=== PATIENT | female | born 1990 | race Caucasian/White ===

== ENCOUNTER 2018-06-24 23:23 | Emergency (ER) | payer BC, OTHER ==
[~2018-06-24] VITALS: Ht 165.1 cm; Wt 70.5 kg
[2018-06-24] MEDS ORDERED: VENL-68 PO (23:58)
[2018-06-25 03:48] VITALS: BP 112/80
== END 2018-06-25 04:10 | disposition left against medical advice (07) ==
LOC: EMS 23:24
DX: K62.5 Hemorrhage of anus and rectum (principal); J02.9 Acute pharyngitis, unspecified; H92.03 Otalgia, bilateral; F41.9 Anxiety disorder, unspecified; F32.9 Major depressive disorder, single episode, unspecified; Z53.21 Procedure and treatment not carried out due to patient leaving prior to being seen by health care provider

== ENCOUNTER 2023-04-11 14:57 | Emergency (ER) | payer BC, OTHER ==
[~2023-04-11] VITALS: Ht 165.1 cm; Wt 65.9 kg
[~2023-04-11 14:57] MED LIST: VENL-68 PO
[2023-04-11 14:59] VITALS: BP 137/76; PULSE 108; RESP 18; TEMP 98.3
[2023-04-11 15:11] LABS: COVID AG,FIA SOURCE NASAL SWAB
[2023-04-11 15:33] LABS: RAPID GROUP A STREP NEGATIVE (NEGATIVE)
[2023-04-11 15:37] LABS: SARS-COV2 (COVID) ANTIGEN,FIA Negative (Negative)
[2023-04-11 15:39] LABS: INFLUENZA TYPE A NEGATIVE FOR TYPE A (NEGATIVE); INFLUENZA TYPE B NEGATIVE FOR TYPE B (NEGATIVE)
== END 2023-04-11 17:15 | disposition home or self-care (01) ==
LOC: EMS 14:57
DX: J02.8 Acute pharyngitis due to other specified organisms (principal); B97.89 Other viral agents as the cause of diseases classified elsewhere; F41.9 Anxiety disorder, unspecified; F32.A Depression, unspecified; Z98.890 Other specified postprocedural states; Z20.822 Contact with and (suspected) exposure to COVID-19
CPT/HCPCS: 99283; 87426; 87430; 87804; C9803